=== PATIENT | male | born 1950 | race Caucasian/White ===

== ENCOUNTER 2019-06-24 16:21 | Emergency (ER) | payer BC, MEDICARE ==
[2019-06-24] MEDS ORDERED: Sodium Chloride 0.9% 10 ML Syringe FLUSH PRN (16:50)
[2019-06-24] MEDS ORDERED: ceFAZolin 2 GM in Premix Bag 1 BAG IV ONE (16:51)
--- NOTE | 2019-06-24 16:52 | EDM.PDOC ---
ED HPI GENERAL MEDICAL PROBLEM - General Chief Complaint: Laceration Stated Complaint: FINGER LAC Time Seen by Provider: 06/24/19 16:39 Source of Information: Reports: Patient History Limitations: Reports: No Limitations - History of Present Illness INITIAL COMMENTS - FREE TEXT/NARRATIVE: Patient is a 68-year-old male who comes to the ER with a crush injury to the tip of his right index finger. Patient states that the tip of his finger [place] He is unsure when his tetanus vaccination was. He has no known medication allergies. 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 Right Finger-Index Pain Score (Numeric/FACES): 5 - Related Data Allergies Allergy/AdvReac Type Severity Reaction Status Date / Time No Known Allergies Allergy Verified 06/24/19 16:39 Home Meds: Home Meds Empagliflozin [Jardiance] 25 mg PO DAILY 06/24/19 [History] Rosuvastatin [Crestor] 10 mg PO BEDTIME 06/24/19 [History] lisinopriL [Lisinopril] 40 mg PO DAILY 06/24/19 [History] metFORMIN [Glucophage] 1,000 mg PO DAILY 06/24/19 [History] Past Medical History HEENT History: Reports: Cataract, Impaired Vision Cardiovascular History: Reports: High Cholesterol, Hypertension Endocrine/Metabolic History: Reports: Diabetes, Type II Social & Family History - Tobacco Use Smoking Status *Q: Former Smoker Used Tobacco, but Quit: Yes Month/Year Tobacco Last Used: 19 - Caffeine Use Caffeine Use: Reports: Coffee, Tea - Recreational Drug Use Recreational Drug Use: No ED ROS GENERAL - Review of Systems Review Of Systems: Comprehensive ROS is negative, except as noted in HPI. ED EXAM, SKIN/RASH Exam: See Below Exam Limited By: No Limitations General Appearance: Alert, WD/WN, No Apparent Distress Respiratory/Chest: No Respiratory Distress, Lungs Clear, Normal Breath Sounds, No Accessory Muscle Use, Chest Non-Tender Cardiovascular: Normal Peripheral Pulses, Regular Rate, Rhythm, No Edema, No Gallop, No JVD, No Murmur, No Rub Extremities: Other (Complicated laceration with exposed bone to the tip of the right index finger. Nailbed is completely gone. Pad of the index finger is attached only at the base.) Course - Vital Signs Last Recorded V/S: Last Vital Signs Temp 98.5 F 06/24/19 16:49 Pulse 66 06/24/19 16:49 Resp 20 06/24/19 16:49 BP 136/73 06/24/19 16:49 Pulse Ox 98 06/24/19 16:49 - Orders/Labs/Meds Orders: Active Orders 24 hr Category Date Time Status Peripheral IV Care [RC] . DIRECTED Care 06/24/19 16:50 Active Vaccines to be Administered [RC] PER UNIT ROUTINE Care 06/24/19 17:18 Active Peripheral IV Insertion Adult [OM.PC] Stat Oth 06/24/19 16:50 Ordered Meds: Medications Discontinued Medications Generic Name Dose Route Start Last Admin Trade Name Freq PRN Reason Stop Dose Admin Diphtheria/Tetanus/Acell Pertussis 0.5 ml 06/24/19 17:18 06/24/19 17:31 Adacel IM 06/24/19 17:19 0.5 ml .ONCE ONE Administration Cefazolin Sodium/Dextrose 2 gm 50 mls @ 100 mls/hr 06/24/19 16:51 06/24/19 17 :07 / Premix IV 06/24/19 17:20 100 mls/hr ONETIME ONE Administration Sodium Chloride 10 ml 06/24/19 16:50 06/24/19 17:07 Saline Flush FLUSH 10 ml ASDIRECTED PRN Administration Keep Vein Open - Re-Assessments/Exams Free Text/Narrative Re-Assessment/Exam: 06/24/19 17:15 X-ray of the right index finger does show an open tuft fracture. Spoke with orthopedist, Dr. Hess, regarding the patient. He recommended that we have the patient follow-up with hand surgeon tomorrow in [place]. Called [facility] in [place] and spoke with Dr. Pizarro, the orthopedic hand surgeon personalized living manager nurse. He recommended that we wrapped a moist, sterile dressing around the finger and then apply an aluminum splint. He would like patient to be at the [facility] at 8 AM central time tomorrow and n.p.o. after midnight. Discussed this with the patient and he is in agreement with this. We will clean up the wound as best we can with sterile saline and CHG soap. Once his Ancef is finished and he is received a tetanus vaccination, we will discharge him home with instructions to follow-up with [facility] tomorrow morning. Departure - Departure Time of Disposition: 17:35 Disposition: Home, Self-Care 01 Condition: Good Clinical Impression: Crushed finger, distal Qualifiers: Encounter type: initial encounter Qualified Code(s): S67.10XA - Crushing injury of unspecified finger(s), initial encounter - Discharge Information *PRESCRIPTION DRUG MONITORING PROGRAM REVIEWED*: No *COPY OF PRESCRIPTION DRUG MONITORING REPORT IN PATIENT LYRIC: No Instructions: Crush Injury of the Hand, [id number] Referrals: Xiomara Saavedra NP [Primary Care Provider] - Alexis Pizarro [Consulting Physician] - Forms: ED Department Discharge Additional Instructions: You were seen in the emergency department today after crushing the tip of your right index finger in a metal gate. X-rays were done and show an open fracture of the tip of your finger. The wound was cleansed and a sterile dressing was applied. This dressing should remain intact until you are seen in [place] tomorrow. You also received an antibiotic through your IV as well as a tetanus vaccination today. You may take [id number] Tylenol as needed for pain tonight. It would also be beneficial to elevate to the extremity when at rest. Arrangements have been made for you to be seen tomorrow morning at 8 AM central time at [facility] in [place]. You should have nothing to eat or drink after midnight tonight in anticipation of surgery tomorrow. The address to [facility] in [place] is: [facility] [address] [place] [id number] or If you develop any new or worsening symptoms of concern, please do not hesitate to return to the emergency department. Sepsis Event Note - Focused Exam Vital Signs: Vital Signs Temp Pulse Resp BP Pulse Ox 06/24/19 16:49 98.5 F 66 20 136/73 98 Date Exam was Performed: 06/24/19 Time Exam was Performed: 21:03 - My Orders Last 24 Hours: My Active Orders 06/24/19 16:50 Peripheral IV Care [RC] . DIRECTED Peripheral IV Insertion Adult [OM.PC] Stat 06/24/19 17:18 Vaccines to be Administered [RC] PER UNIT ROUTINE - Assessment/Plan Last 24 Hours: My Active Orders 06/24/19 16:50 Peripheral IV Care [RC] . DIRECTED Peripheral IV Insertion Adult [OM.PC] Stat 06/24/19 17:18 Vaccines to be Administered [RC] PER UNIT ROUTINE
--- NOTE | 2019-06-24 17:15 | CR ---
Right 2nd finger: 3 views centered to the right 2nd finger were obtained. Comminuted and displaced tuft fracture is noted within the distal 2nd finger. Soft tissue injury is also noted distally with additional diffuse soft tissue swelling. No proximal bony abnormality is seen. Impression: 1. Fracture as described above with soft tissue injury. Diagnostic code #3 This report was dictated in MDT
[2019-06-24] MEDS ORDERED: Diphtheria,Pertussis(Acell),Tetanus Vaccine 0.5 ML Syringe IM ONE (17:18)
== END 2019-06-24 17:45 | disposition home or self-care (01) ==
LOC: JD.ED 16:21
DX: S67.190A Crushing injury of right index finger, initial encounter (principal); E78.00 Pure hypercholesterolemia, unspecified; I10 Essential (primary) hypertension; E11.9 Type 2 diabetes mellitus without complications; Z87.891 Personal history of nicotine dependence; Z23 Encounter for immunization; Z79.84 Long term (current) use of oral hypoglycemic drugs; Z79.899 Other long term (current) drug therapy; W23.0XXA Caught, crushed, jammed, or pinched between moving objects, initial encounter
CPT/HCPCS: 73140; 90471; 90715; 96365; 99283; J0690; 29130

== ENCOUNTER 2023-04-16 14:11 | Emergency (ER) | payer BC ==
[2023-04-16] MEDS: Lidocaine 1% 10 ML MDV INJECT ONE (16:27)
[2023-04-16] MEDS: Bupivacaine 0.25% 10 ML SDV INJECT ONE (17:06)
== END 2023-04-16 17:13 | disposition home or self-care (01) ==
LOC: JD.ED 14:11
DX: L02.511 Cutaneous abscess of right hand (principal); I10 Essential (primary) hypertension; E78.00 Pure hypercholesterolemia, unspecified; E11.9 Type 2 diabetes mellitus without complications; Z79.84 Long term (current) use of oral hypoglycemic drugs; Z79.899 Other long term (current) drug therapy
CPT/HCPCS: 10060; 73140-26-F6; 73140-F6; 99283; J3490

== ENCOUNTER 2024-02-05 08:18 | Day surgery (SDC) | payer BC ==
[2024-02-05] MEDS ORDERED: fentaNYL 100 MCG/2 ML SDV ONE (08:30)
[2024-02-05] MEDS ORDERED: Propofol 200 MG/20 ML SDV ONE ×2 (08:30→10:47)
[2024-02-05] MEDS: Lactated Ringers 1,000 ML IV SCH (08:45)
[2024-02-05] MEDS ORDERED: EPINEPHrine 1 MG/ML SDV ONE (09:57)
[2024-02-05] MEDS ORDERED: Bupivacaine 0.5% 30 ML SDV ONE (09:57)
[2024-02-05] MEDS ORDERED: Sodium Chloride 0.9% 10 ML Syringe FLUSH PRN (10:13)
[2024-02-05] MEDS ORDERED: Sodium Chloride 0.9% 10 ML Syringe FLUSH SCH (21:00)
== END 2024-02-05 13:05 | disposition home or self-care (01) ==
LOC: JD.SDS 08:18
PROVIDERS: ATTEND Surgery
DX: L72.3 Sebaceous cyst (principal); I10 Essential (primary) hypertension; E78.00 Pure hypercholesterolemia, unspecified; E11.9 Type 2 diabetes mellitus without complications; E66.9 Obesity, unspecified; Z79.84 Long term (current) use of oral hypoglycemic drugs; Z79.899 Other long term (current) drug therapy; Z87.891 Personal history of nicotine dependence
CPT/HCPCS: 82947; J0171; J0665; J2704; J3010; J7120